=== PATIENT | female | born 1975 | race Caucasian/White ===

== ENCOUNTER 2020-05-14 15:06 | Emergency (ER) | payer BC, SELFPAY ==
[2020-05-14 15:06] VITALS: BP 148/93; PULSE 84; RESP 18; TEMP 36.2; O2SAT 98; BMI 34.7
[2020-05-14 16:57] LABS: Absolute Lymphocyte Count 2.46 X10^3/uL (0.83-4.51); Absolute Neutrophil Count 3.1 X10^3/uL (2.0-7.7); Basophil# 0.02 X10^3/uL; Basophil% 0.3 % (0-1); Eosinophil# 0.04 X10^3/uL; Eosinophils% 0.7 % (0-5); Hematocrit 47.3 % (37-47); Hemoglobin 15.9 g/dL (12.0-15.0); Lymphocyte # 2.46 X10^3/ul (4.0); Lymphocyte % 40.2 % (19-41); Mean Corp Hgb Conc 33.6 g/dL (32-36); Mean Corpuscular Hgb 30.2 pg (27.0-32.0); Mean Corpuscular Volume 89.8 fL (81-99); Monocyte# 0.45 X10^3/uL; Monocyte% 7.4 % (0-10); NRBC Flagged by Analyzer 0 % (0-5); Neutrophil # 3.14 X10^3/uL (2.7-7.7); Neutrophil % 51.2 % (47-70); Platelet Count 322 K/mm3 (150-450); RBC Distribution Width CV 12.4 % (11.6-14.6); RBC Distribution Width SD 40.5 fl (35.1-43.9); Red Blood Count 5.27 M/mm3 (4.2-5.4); White Blood Count 6.1 K/mm3 (4.4-11.0)
--- NOTE | 2020-05-14 17:04 | EKG12_ITS ---
Test Reason : CP Blood Pressure : / mmHG Vent. Rate : 077 BPM Atrial Rate : 077 BPM P-R Int : 156 ms QRS Dur : 076 ms QT Int : 390 ms P-R-T Axes : 033 -21 014 degrees QTc Int : 441 ms Normal sinus rhythm Normal ECG Confirmed by KAVITA GEE, NATI ([id number]), news videotape editor ROCHELLE ABDALLA ([id number]) on 05/16/2020 9:32:28 AM Referred By: Confirmed By:NATI WALLS MD
--- NOTE | 2020-05-14 17:05 | CT_ITS ---
STUDY: CT BRAIN WITHOUT CONTRAST REASON FOR EXAM: Female, 44 years old. MIGRAINES RADIATION DOSAGE (If Supplied By Facility): CTDIvol = ( 44.99 ) mGy, DLP = ( 745.49 ) mGycm TECHNIQUE: Transaxial CT imaging of the brain was performed without administration of intravenous contrast material. Individualized dose optimization techniques were used for this CT. COMPARISON: MRI 04/27/2014. FINDINGS: Normal soft tissue structures. Normal calvarium. Normal size ventricles and extra-axial spaces for the patient''s age. Normal white matter tracts of the cerebral hemispheres. Normal basal ganglia and thalami. Normal brainstem. Normal cerebellum. There is no intracranial hemorrhage. There are no findings of an acute ischemic infarction. Normal visualized paranasal sinuses. CT/Brain/Head without Contrast IMPRESSION: Normal unenhanced CT scan of the brain. Electronically Signed: Bhakti Valenzuela MD at 19:08 EDT Tel , Service support ,
--- NOTE | 2020-05-14 17:05 | ED.DCSUM_ITS ---
History of Present Illness Chief Complaint: Abn Labs Informant: Patient, PCP Narrative: Patient was sent to the emergency department for the evaluation of an elevated d-dimer. Patient states that she has a discomfort in the proximal left anterior thigh near the inguinal ligament. She states she occasionally feels a bubbly gurgling sensation in the leg. She denies any leg swelling or calf discomfort. No changes in skin color. She states that she is also had 4 weeks of left upper chest discomfort radiating to the back. She also states that she has a history of ocular migraines and lately has had an increase in the amount up to 2 times per week. Her symptoms are a kaleidoscope vision in which she has to rest and symptoms kimberly after 40 minutes. She denies any pain. She has a history of factor V and is not currently being treated for it. She went to her primary care physician as part of a work-up she had a d-dimer that returned elevated at 840. She does not believe she is ever had a d-dimer before. Past Medical History - Allergies and Home Meds Allergies/Adverse Reactions: Allergies No Known Allergies Allergy (Verified 05/14/20 15:09) Primary Care Physician: Care Physician,No Primary [NON-STAFF] - Past Medical History: - - Factor V Leiden, ocular migraines Surgical History: noncontributory Smoking Status: Never smoker Drugs: None Review of Systems General: Denies: Chills, Fever, Sweats Eyes: Reports: Visual changes - bilaterally. Denies: Diplopia ENT: Denies: Rhinorrhea, Sore throat Cardiovascular: Reports: Chest pain. Denies: Palpitations Respiratory: Denies: Dyspnea, Cough, Dyspnea on exertion Gastrointestinal: Denies: Abdominal pain, Nausea, Vomiting, Diarrhea, Melena, Hematochezia Genitourinary: Denies: Dysuria, Hematuria, Frequency Musculoskeletal: Reports: Extremity Pain - See history of present illness. Denies: Back pain Skin: Denies: Rash, Wounds Neurological: Reports: Headache - Ocular migraines. Denies: Weakness, Parasthesia, Numbness Physical Exam Vital Signs/Narrative: Vital Signs Temp Pulse Resp BP Pulse Ox 05/14/20 15:06 97.1 F L 84 18 148/93 H 98 Inital Vital Signs reviewed: Yes General: Well nourished, Well developed, No Acute Distress Head: Normocephalic, Atraumatic Eyes: Perrl, EOMI ENT: Moist mucous membranes, No rhinorrhea Neck: Supple, Nontender Cardiovascular: Regular rate, Regular rhythm, No murmurs Respiratory: No distress, CTA bilaterally, Chest nontender Abdomen: Soft, Nontender, Nondistended, Normal bowel sounds Back: Nontender, Normal Inspection Extremities: Nontender, No edema Skin: Normal color, No rash Neurological: Alert, Oriented x3, Cranial nerves II-XII grossly intact, Normal Strength, Normal Sensation Psychological: Normal affect, Normal Mood Diagnostic/Tx/Re-eval Laboratory Last Values WBC 6.1 K/mm3 (4.4-11.0) 05/14/20 16:30 RBC 5.27 M/mm3 (4.2-5.4) 05/14/20 16:30 Hgb 15.9 g/dL (12.0-15.0) H 05/14/20 16:30 Hct 47.3 % (37-47) H 05/14/20 16:30 MCV 89.8 fL (81-99) 05/14/20 16:30 MCH 30.2 pg (27.0-32.0) 05/14/20 16:30 MCHC 33.6 g/dL (32-36) 05/14/20 16:30 RDW Std Deviation 40.5 fl (35.1-43.9) 05/14/20 16:30 RDW Coeff of Marie 12.4 % (11.6-14.6) 05/14/20 16:30 Plt Count 322 K/mm3 (150-450) 05/14/20 16:30 MPV 9.0 fl (6.2-12.0) 05/14/20 16:30 Immature Gran % (Auto) 0.200 % (0.0-0.9) 05/14/20 16:30 Neut % (Auto) 51.2 % (47-70) 05/14/20 16:30 Lymph % (Auto) 40.2 % (19-41) 05/14/20 16:30 Twiggs % (Auto) 7.4 % (0-10) 05/14/20 16:30 Eos % (Auto) 0.7 % (0-5) 05/14/20 16:30 Baso % (Auto) 0.3 % (0-1) 05/14/20 16:30 Absolute Neuts (auto) 3.1 X10^3/uL (2.0-7.7) 05/14/20 16:30 Absolute Lymphs (auto) 2.46 X10^3/uL (0.83-4.51) 05/14/20 16:30 Nucleated RBC % 0 % (0-5) 05/14/20 16:30 D-Dimer Quant (PE/DVT) 0.36 FEU/ug/m (0.27-0.49) 05/14/20 16:30 Sodium 138 mmol/L (136-145) 05/14/20 16:30 Potassium 4.0 mmol/L (3.5-5.1) 05/14/20 16:30 Chloride 106 mmol/L (98-107) 05/14/20 16:30 Carbon Dioxide 26.0 mmol/L (21.0-32.0) 05/14/20 16:30 Anion Gap 6 (5-15) 05/14/20 16:30 BUN 9 mg/dL (7-18) 05/14/20 16:30 Creatinine 0.73 mg/dL (0.55-1.02) 05/14/20 16:30 Estim Creat Clear Calc 87.57 ml/min 05/14/20 16:30 Est GFR (MDRD) Af Amer 111 mL/min (>60) 05/14/20 16:30 Est GFR (MDRD) Non-Af 92 mL/min (>60) 05/14/20 16:30 BUN/Creatinine Ratio 12.4 RATIO (-) 05/14/20 16:30 Glucose 94 mg/dL (74-106) 05/14/20 16:30 Calcium 9.7 mg/dL (8.5-10.1) 05/14/20 16:30 Troponin I < 0.015 ng/mL (<0.045) 05/14/20 16:30 - EKG Initial EKG Interpretation: Sinus Rhythm - EKG demonstrates a normal sinus rhythm at a rate of 77. There are no concerning features of ACS - Medical Decision Making Today's d-dimer is normal. I do not believe she has a DVT in the leg. There is no swelling or tenderness in the calf. Her symptoms would be very atypical for lower extremity DVT. As her d-dimer is normal today and she has a normal chest x-ray EKG and troponin and it has been going on for 4 weeks I do not believe it represents an acute medical emergency. I think is most likely to be musculoskeletal probably muscular imbalance. As far as her ocular migraines we did CT the brain which did not show anything obvious. Recommend that she visit with neurology. Patient is comfortable with this plan. ED Disposition - Plan for ED Patient: Disposition: Home or Assisted Living Diagnosis: Chest pain, Ocular migraine Instructions: ED Chest Pain Atypical Unkn Cause, D-Dimer Referrals: Patricia Ibrahim NP, [facility]W PERSON-[facility] [Primary Care Provider] - Keep Miroslava appointment
[2020-05-14 17:19] LABS: Anion Gap 6 (5-15); BUN 9 mg/dL (7-18); BUN/Creat Ratio 12.4 RATIO (10-20); Calcium,Total 9.7 mg/dL (8.5-10.1); Chloride 106 mmol/L (98-107); Creatinine, Serum 0.73 mg/dL (0.55-1.02); EST Glomerular Filtration Rate 92 mL/min (>60); Est Glom Filt Rate - Afr Amer 111 mL/min (>60); Estimated Creatinine Clearance 87.57 ml/min; Glucose 94 mg/dL (74-106); Sodium Level 138 mmol/L (136-145)
[2020-05-14 17:27] LABS: D-Dimer Quantitative (DVT/PE) 0.36 FEU/ug/m (0.27-0.49)
--- NOTE | 2020-05-14 18:25 | RAD_ITS ---
STUDY: X-RAY CHEST REASON FOR EXAM: Female, 44 years old. chest pain, elevated d-dimer, headaches TECHNIQUE: Single AP portable view of the chest. COMPARISON: None. FINDINGS: The lungs are clear and expanded. There is no demonstrated pleural abnormality. Normal size heart. Normal mediastinum and roxanna. Normal visualized pulmonary arteries. Normal visualized aortic arch and descending thoracic aorta. Normal visualized thoracic spine. Normal visualized ribs, clavicles, and shoulders. There is no demonstrated abnormality of the visualized soft tissue structures of the upper abdomen. RAD/Chest 1 View (Portable) IMPRESSION: Normal x-ray examination of the chest. Electronically Signed: Ron Lozano MD at 19:48 EDT , Service support ,
[2020-05-14 18:55] VITALS: RESP 16
[2020-05-14 19:41] VITALS: BP 121/77; PULSE 76; RESP 16; O2SAT 98
[2020-05-14 22:24] LABS: Internal QC Validated? YES +Cl - CLEAR BKGD; Pregnancy, Serum, hCG Quali. NEGATIVE Negative
== END 2020-05-14 19:42 | disposition home or self-care (01) ==
PROVIDERS: Emergency Medicine; Emergency Provider Emergency Medicine; PCP Nurse Practitioner Family
DX: R07.89 Other chest pain (principal); G43.909 Migraine, unspecified, not intractable, without status migrainosus; M79.652 Pain in left thigh; D68.51 Activated protein C resistance
CPT/HCPCS: 70450; 71045; 80048; 84484; 84703; 85025; 85379; 93005; 99282; A4216

== ENCOUNTER → 2022-02-28 | Outpatient (CLI) | payer BC, SELFPAY ==
--- NOTE | 2022-02-28 07:00 | MRI_ITS ---
EXAM: MR HEAD WITHOUT AND WITH INTRAVENOUS CONTRAST CLINICAL INDICATION: Ataxia. TECHNIQUE: Multiplanar and multisequence MR images of the brain were obtained without and with intravenous contrast. Magnetic field strength 1.5 T. This report was created using [facility] report [employer] technology. CONTRAST: 18 cc of Dotarem IV. COMPARISON: 04/27/2014. FINDINGS: BRAIN AND EXTRA-AXIAL SPACES: Unremarkable. No intra- or extra-axial hemorrhage. No evidence of acute infarct. No intracranial mass or mass effect. There is preservation of the reich/white matter interface. Posterior fossa structures are unremarkable. Ventricles are appropriate for age. No hydrocephalus. Basal cisterns are patent. SELLA: Incidental partially empty sella unchanged since previous exam. AUDITORY SYSTEM: Unremarkable. The internal auditory canals are patent. BONES/JOINTS: Unremarkable. No discrete lytic or blastic abnormalities. SINUSES: Unremarkable as visualized. Clear. MASTOID AIR CELLS: Unremarkable as visualized. Clear. ORBITS: Unremarkable as visualized. Both globes, extraocular muscles, optic nerves and retrobulbar fat appear unremarkable. VASCULATURE: Unremarkable as visualized. Normal flow voids in the major intracranial circulation. MRI/Brain W/WO Contrast IMPRESSION: No acute findings in the head/brain. No change since previous exam. Electronically Signed: Gregory Mcnair MD at 23:36 EDT ,
== END | disposition home or self-care (01) ==
PROVIDERS: PCP Nurse Practitioner Family; Referring Provider Otolaryngology Otolaryngology/Facial Plastic Surgery; Visit Provider Otolaryngology Otolaryngology/Facial Plastic Surgery
DX: R27.0 Ataxia, unspecified (principal)
CPT/HCPCS: 70553; A9575

== ENCOUNTER 2022-03-06 10:55 | Outpatient (CLI) | payer BC, SELFPAY ==
--- NOTE | 2022-03-09 15:31 | STRESSREP_ITS ---
Stress Test Report Date: 03/06/2022 Procedure: Exercise tolerance test Indications: Dizziness, chest pain Consent: Per the patient Procedure: The patient exercised on a Chun protocol for 7 minutes and 30 seconds achieving a peak heart rate of 162 bpm (93% predicted maximal heart rate) with a peak blood pressure 138/74 mmHg and a peak MET capacity of approximately 10.1 MET's. The baseline ECG demonstrated normal sinus rhythm. The peak exercise ECG demonstrated no significant ischemic changes. [There were no cardiac dysrhythmias pretest, during exercise, or recovery]. The functional capacity was considered normal for age. Patient had chest discomfort on exertion The examination was discontinued secondary to chest discomfort, dyspnea. Impression: 1. Technically adequate (percent predicted maximal heart rate greater than 85%) exercise tolerance test 2. Stress test is positive for exercise-induced chest pain. 3. Stress test test is negative for exercise-induced EKG changes of ischemia. 4. Functional capacity is normal for age This note was generated with [employer] software. It may contain incorrect words, spelling, and punctuation that were not noted in checking the note before signing.
== END 2022-03-06 23:59 | disposition home or self-care (01) ==
LOC: CVS 10:56
PROVIDERS: PCP Nurse Practitioner Family; Referring Provider Nurse Practitioner Family; Visit Provider Nurse Practitioner Family
DX: D68.9 Coagulation defect, unspecified (principal); R42 Dizziness and giddiness; R51.9 Headache, unspecified; R07.9 Chest pain, unspecified
CPT/HCPCS: 93017

== ENCOUNTER 2022-09-10 08:58 | Emergency (ER) | payer BC, SELFPAY ==
[2022-09-10 08:59] VITALS: BP 149/90; PULSE 99; RESP 18; TEMP 36.8; O2SAT 98; BMI 35.1
--- NOTE | 2022-09-10 09:11 | RAD_ITS ---
STUDY: X-RAY CHEST REASON FOR EXAM: Female, 46 years old. Chest pain TECHNIQUE: Single AP portable view of the chest. COMPARISON: Comparison is made with prior study dated 05/14/2020. FINDINGS: EKG electrodes are seen. The lungs are clear and expanded. There is no demonstrated pleural abnormality. Normal size heart. Normal mediastinum and roxanna. Normal visualized pulmonary arteries. Normal visualized aortic arch and descending thoracic aorta. Normal visualized thoracic spine. Normal visualized ribs, clavicles, and shoulders. There is no demonstrated abnormality of the visualized soft tissue structures of the upper abdomen. RAD/Chest 1 View (Portable) IMPRESSION: Normal x-ray examination of the chest. Electronically Signed: Washington Guevara MD at 9:56 EST ,
--- NOTE | 2022-09-10 09:14 | EDS_ITS ---
HPI History of Present Illness Chief Complaint: Chest Pain Informant: patient Narrative Narrative: Patient complaints of pain in the left anterior chest and in a band under her left breast. This started this morning. She states she just does not feel right. She got lightheaded with this. She got short of breath. She got tingling in fingers of both hands. She has not had this before. She has had prior episodes of pain and has had a stress test as well as echocardiogram. I do not have access to results of her echocardiogram. She does states that it was normal other than her left ventricle being slightly smaller than the average. I did review her outpatient stress test done in February 2022 that was negative for any EKG changes at an adequate workload. Patient also has a family history of DVT and PEs in both mother and sister. This patient is known to have factor V Leiden positive but has no recent travel surgery immobilization or personal history of DVT or PE in the past. She has no leg pains or swelling. [facility] Medical History Factor V deficiency Home Medications naproxen 500 mg tablet 500 mg PO BID #14 tabs 09/10/22 [Rx Last Taken Unknown] Allergy/AdvReac Type Severity Reaction Status Date / Time No Known Allergies Allergy Verified 09/10/22 09:05 Surgical History History of cholecystectomy Social History Smoking Status: Former smoker ROS ROS ED Constitutional Constitutional ED: Denies chills or fever(s) Eyes Eyes: Denies change in vision ENT ENT ED: Denies rhinorrhea or sore throat Cardiovascular Cardiovascular: Reports as per HPI Respiratory/Chest Respiratory/Chest: Reports dyspnea; Denies cough Gastrointestinal Gastrointestinal: Denies nausea or vomiting Musculoskeletal Musculoskeletal: Denies back pain, myalgias or neck pain Integumentary Denies rash Neurologic Neurologic: Reports paresthesias; Denies headache(s) or weakness Psychiatric Psychiatric: Denies anxiety Endocrine Endocrinology: Denies polydipsia or polyuria Hematologic/Lymphatic Hematologic/Lymphatic: Denies easy bleeding or easy bruising Allergic/Immunologic Allergic/Immunologic ED: Denies urticaria EXAM Physical Exam Narrative Exam Narrative: Patient awake alert sitting comfortably in bed. No acute distress. Heart rate is about 90. Saturations are 98% on room air showing no hypoxia. HEENT: No pallor. Mucous membranes are moist Neck shows no JVD or pain with motion Lungs are completely clear bilaterally. There is no notable discomfort with a deep breath. However, when I touch the areas that are sore completely and fully reproduces the pain. She actually pulls my hand away because it hurts so much to touch. But there is no rash or vesicles or redness or mass seen. No subcu air noted. Heart is regular without murmur gallop or rub. Pulses are equal x4. Abdomen is soft nontender. No epigastric or right upper quadrant tenderness. She has already had cholecystectomy. no CVA or suprapubic tenderness Extremities show no edema cords asymmetry tenderness along the deep venous system or distended veins. Neuro: Patient is alert appropriate with no numbness or weakness. Const Vital Signs: 09/10/22 08:59 09/10/22 09:05 09/10/22 09:34 Temperature 98.2 F Temperature Source Oral Pulse Rate 99 Respiratory Rate 18 Respiratory Effort Normal Respiratory Pattern Normal Blood Pressure 149/90 H Blood Pressure Mean 109 Pulse Ox 98 98 Oxygen Delivery Method Room Air Room Air 09/10/22 10:43 09/10/22 11:23 09/10/22 12:09 Temperature Temperature Source Pulse Rate 78 79 79 Respiratory Rate 16 12 14 Respiratory Effort Respiratory Pattern Blood Pressure 142/84 H 123/73 H 113/70 Blood Pressure Mean 103 89 84 Pulse Ox 98 97 97 Oxygen Delivery Method Room Air Room Air Room Air MDM MDM MDM Narrative Medical decision making narrative: My independent interpretation the patient's single view AP chest shows no acute process. No pneumonia. No pneumothorax. Final reading by radiology is similar. CTA of the chest shows no acute process including no PE or dissection. Her CBC is normal. D-dimer was negative. Even though this was negative, she had another episode where she had worsening chest pain lightheadedness and felt that her heart race. With her family history and known factor V Leiden we did do a CT at this point. However, her exam is more consistent with musculoskeletal as it is so tender to press. Her electrolytes show no acute process. Troponin and repeat troponin are both negative and less than 7. I think with her work-up being negative, repeat troponin is negative she is safe for discharge. This may be a muscle strain or pinched nerve causing symptoms as they do wrap around under her breast and come to the front. We discussed reasons to return. I will give her medications here and to go for pain. Lab Data Attestation: I reviewed the patient's lab results. Labs: Laboratory Results - last 24 hr 09/10/22 09/10/22 09/10/22 09:40 09:40 09:40 WBC 6.9 RBC 5.07 Hgb 15.3 H Hct 45.6 MCV 89.9 MCH 30.2 MCHC 33.6 RDW Std Deviation 41.6 RDW Coeff of Marie 12.8 Plt Count 252 MPV 8.8 Immature Gran % (Auto) 0.100 Neut % (Auto) 69.0 Lymph % (Auto) 24.3 Mchenry % (Auto) 5.7 Eos % (Auto) 0.6 Baso % (Auto) 0.3 Absolute Neuts (auto) 4.8 Absolute Lymphs (auto) 1.68 Nucleated RBC % 0 D-Dimer Quant (PE/DVT) 0.36 Sodium 139 Potassium 3.9 Chloride 104 Carbon Dioxide 25.0 Anion Gap 10 BUN 10 Creatinine 0.71 Estim Creat Clear Calc 88.14 Est GFR (MDRD) Af Amer 113 Est GFR (MDRD) Non-Af 93 BUN/Creatinine Ratio 14.0 Glucose 118 H Calcium 9.3 Troponin I High Sens 4 09/10/22 11:54 WBC RBC Hgb Hct MCV MCH MCHC RDW Std Deviation RDW Coeff of Marie Plt Count MPV Immature Gran % (Auto) Neut % (Auto) Lymph % (Auto) Mchenry % (Auto) Eos % (Auto) Baso % (Auto) Absolute Neuts (auto) Absolute Lymphs (auto) Nucleated RBC % D-Dimer Quant (PE/DVT) Sodium Potassium Chloride Carbon Dioxide Anion Gap BUN Creatinine Estim Creat Clear Calc Est GFR (MDRD) Af Amer Est GFR (MDRD) Non-Af BUN/Creatinine Ratio Glucose Calcium Troponin I High Sens 6 Radiography Diagnostic Testing: Clinical Impression(s) from Imaging Studies Chest X-Ray 09/10/22 09:11 IMPRESSION: Normal x-ray examination of the chest. Electronically Signed: Washington Guevara MD at 9:56 EST , Chest CTA 09/10/22 10:44 IMPRESSION: Normal CTA chest examination, without a demonstrated pulmonary embolism or arterial dissection. Electronically Signed: Washington Guevara MD at 12:03 EST , EKG Initial EKG: Comments: My independent interpretation of the EKG done for chest pain shows a normal sinus rhythm with overall rate of 99. No ventricular ectopy. No ST elevation or depression. AK interval, QRS duration and QTc are normal. Other than a slight prior EKG of 14 May 2020. This EKG was done while she had symptoms. Discharge Plan Triage Chief Complaint: Chest Pain ED Provider: Catarino Juares Dx/Rx/DC Orders Clinical Impression: Left-sided chest pain Instructions: ED Chest Pain, Uncertain Cause Prescriptions: New naproxen 500 mg tablet 500 mg PO BID Qty: 14 0RF Primary Care Provider: Patricia Ibrahim NP Referrals: Patricia Ibrahim NP, PATIENT REGISTRATION REPRESENTATIVE-C [Primary Care Provider] - 3-5 Days Disposition Disposition: Home, Self Care
--- NOTE | 2022-09-10 09:15 | EKG12_ITS ---
Test Reason : CP Blood Pressure : / mmHG Vent. Rate : 099 BPM Atrial Rate : 099 BPM P-R Int : 162 ms QRS Dur : 078 ms QT Int : 350 ms P-R-T Axes : 040 -20 030 degrees QTc Int : 449 ms Normal sinus rhythm Low voltage QRS Borderline ECG Confirmed by KAVITA GEE, NATI ([id number]), offline editor ROCHELLE ABDALLA ([id number]) on 09/11/2022 10:04:53 AM Referred By: PL Confirmed By:NATI WALLS MD
[2022-09-10 09:34] VITALS: O2SAT 98
[2022-09-10 09:49] LABS: Absolute Lymphocyte Count 1.68 X10^3/uL (0.83-4.51); Absolute Neutrophil Count 4.8 X10^3/uL (2.0-7.7); Basophil# 0.02 X10^3/uL; Basophil% 0.3 % (0-1); Eosinophil# 0.04 X10^3/uL; Eosinophils% 0.6 % (0-5); Hematocrit 45.6 % (37-47); Hemoglobin 15.3 g/dL (12.0-15.0); Lymphocyte # 1.68 X10^3/ul (0.83-4.51); Lymphocyte % 24.3 % (19-41); Mean Corp Hgb Conc 33.6 g/dL (32-36); Mean Corpuscular Hgb 30.2 pg (27.0-32.0); Mean Corpuscular Volume 89.9 fL (81-99); Mean Platelet Vol. 8.8 fl (6.2-12.0); Monocyte# 0.39 X10^3/uL; Monocyte% 5.7 % (0-10); NRBC Flagged by Analyzer 0 % (0-5); Neutrophil # 4.76 X10^3/uL (2.7-7.7); Platelet Count 252 K/mm3 (150-450); RBC Distribution Width CV 12.8 % (11.6-14.6); RBC Distribution Width SD 41.6 fl (35.1-43.9); Red Blood Count 5.07 M/mm3 (4.2-5.4); White Blood Count 6.9 K/mm3 (4.4-11.0)
[2022-09-10 10:01] LABS: D-Dimer Quantitative (DVT/PE) 0.36 FEU/ug/m (0.27-0.49)
[2022-09-10 10:09] LABS: Anion Gap 10 (5-15); BUN 10 mg/dL (7-18); Calcium,Total 9.3 mg/dL (8.5-10.1); Chloride 104 mmol/L (98-107); Creatinine, Serum 0.71 mg/dL (0.55-1.02); EST Glomerular Filtration Rate 93 mL/min (>60); Est Glom Filt Rate - Afr Amer 113 mL/min (>60); Estimated Creatinine Clearance 88.14 ml/min; Glucose 118 mg/dL (74-106); Potassium 3.9 mmol/L (3.5-5.1); Sodium Level 139 mmol/L (136-145); Troponin-I HS (w/2H Reflex) 4 pg/mL (3.0-54.0)
[2022-09-10 10:43] VITALS: BP 142/84; PULSE 78; RESP 16; O2SAT 98
--- NOTE | 2022-09-10 10:44 | CT_ITS ---
STUDY: CTA CHEST REASON FOR EXAM: Female, 46 years old. Left anterior chest pain. Shortness of breath. RADIATION DOSAGE (If Supplied By Facility): CTDIvol = ( 12.33 ) mGy, DLP = ( 543.54 ) mGycm TECHNIQUE: The examination was performed with the intravenous administration of IV 100mL Isovue-370. Post-processing of the angiographic images was performed, with multiplanar reformation and 3D reconstruction. Individualized dose optimization techniques were used for this CT. COMPARISON: None. FINDINGS: Normal enhancement of the main pulmonary artery and right and left pulmonary arteries. Normal enhancement of the bilateral peripheral pulmonary arteries. There is no demonstrated pulmonary embolism. Normal thoracic aorta and visualized great vessels. There is no demonstrated aortic dissection. Normal heart and pericardium. Normal mediastinum. Normal hilar regions. Normal visualized trachea and bronchi. The lungs are well expanded. Normal pulmonary parenchyma. Normal pleura. Normal chest wall structures. Normal osseous structures. The patient is status post cholecystectomy. Diffuse fatty infiltration of the liver. CT/CTA Chest W/WO Contrast IMPRESSION: Normal CTA chest examination, without a demonstrated pulmonary embolism or arterial dissection. Electronically Signed: Washington Guevara MD at 12:03 EST ,
[2022-09-10 11:23] VITALS: BP 123/73; PULSE 79; RESP 12; O2SAT 97
[2022-09-10 11:46] LABS: Reflex Troponin-HS? (from REC) Y
[2022-09-10 12:09] VITALS: BP 113/70; PULSE 79; RESP 14; O2SAT 97
[2022-09-10 12:16] LABS: Troponin-I HS 6 pg/mL (3.0-54.0)
[2022-09-10] MEDS: Ketorolac 15 MG/ML Vial IV (12:59)
[2022-09-10 13:03] VITALS: BP 114/67; PULSE 79; RESP 15; O2SAT 98
== END 2022-09-10 13:04 | disposition home or self-care (01) ==
PROVIDERS: Emergency Provider Emergency Medicine; PCP Nurse Practitioner Family; Visit Provider Emergency Medicine
DX: R07.9 Chest pain, unspecified (principal); D68.2 Hereditary deficiency of other clotting factors; R06.02 Shortness of breath; Z87.891 Personal history of nicotine dependence; R06.00 Dyspnea, unspecified
CPT/HCPCS: 71045; 71275; 80048; 84484; 85025; 85379; 93005; 96374; 99285; Q9967; A4216

== ENCOUNTER 2023-07-29 07:31 | Emergency (ER) | payer BC, SELFPAY ==
[2023-07-29 07:32] VITALS: BP 111/79; PULSE 80; RESP 14; TEMP 36.8; O2SAT 100; BMI 33.4
--- NOTE | 2023-07-29 07:35 | ED.RN ---
PT'S DAUGHTER WAS INTERRUPTING THIS TRIAGE NURSE WHILE I WAS TRIAGING AN ELDERLY PT DEMANDING THAT HER MOTHER BE SEEN IMMEDIATELY D/T HER INCISION BLEEDING. DAUGHTER REFUSED TO SIT DOWN, STOOD AT THE TRIAGE DESK AND LISTENED TO THE CURRENT ELDERLY PT THAT WAS BEING TRIAGED INFORMATION AND MEDICAL COMPLAINTS. ONCE I ASSESSED THIS PT'S WOUND, THERE WAS NO DRAINAGE NOTED AT THAT TIME.
--- NOTE | 2023-07-29 08:17 | EX.ED.DYSGE1 ---
HPI History of Present Illness Chief Complaint: Wound Informant: patient Narrative Narrative: 47-year-old female presenting to the emergency room with drainage from right breast. Patient states she underwent bilateral breast reduction surgery by Dr. Whitehead at [facility]. She states she had a follow-up appointment yesterday and stated that things appeared well. This morning she noted a bloody drainage from the right breast. She feels the incision has opened up. She has not been able to get in contact with her surgeon yet. No reported fevers. No change in pain. PFSH PFS Medical History Anxiety and depression Back pain Factor V deficiency Gallstones Headache, migraine Kidney stones Home Medications naproxen 500 mg tablet 500 mg PO BID #14 tabs 09/10/22 [Rx Last Taken Unknown] acetaminophen 500 mg tablet (Tylenol Extra Strength) 1,000 mg PO Q6H PRN 02/24/23 [History Last Taken Unknown] aspirin 325 mg tablet 650 mg PO DAILY PRN 02/24/23 [History Last Taken Unknown] citalopram 20 mg tablet 20 mg PO DAILY 02/24/23 [History Last Taken Unknown] Allergy/AdvReac Type Severity Reaction Status Date / Time No Known Allergies Allergy Verified 07/29/23 07:31 Family History Other Diabetes Liver disease Surgical History History of cholecystectomy Social History Smoking Status: Former smoker alcohol intake: never substance use type: does not use additional social history: Uses aspirin. Uses ibuprofen. ROS ROS ED Constitutional Constitutional ED: Denies chills, fever(s) or weight loss Eyes Eyes: Denies change in vision or diplopia ENT ENT ED: Denies ear pain, rhinorrhea or sore throat Cardiovascular Cardiovascular: Denies chest pain, orthopnea, palpitations or racing heartbeat Respiratory/Chest Respiratory/Chest: Denies cough, dyspnea or orthopnea Gastrointestinal Gastrointestinal: Denies abdominal pain, diarrhea, nausea or vomiting Genitourinary Genitourinary ED: Denies dysuria, hematuria or urinary frequency Musculoskeletal Musculoskeletal: Denies arthralgias or myalgias Integumentary Reports other Details: Right breast drainage ; Denies abscess or rash Neurologic Neurologic: Denies headache(s) or weakness Psychiatric Psychiatric: Denies anxiety, depression, suicidal ideation or suicidal thoughts Endocrine Endocrinology: Denies polydipsia, polyphagia or polyuria Allergic/Immunologic Allergic/Immunologic ED: Denies mouth swelling, tongue swelling or urticaria EXAM Physical Exam Const Vital Signs: 07/29/23 07:32 Temperature 98.2 F Temperature Source Temporal Pulse Rate 80 Respiratory Rate 14 Blood Pressure 111/79 Blood Pressure Mean 89 Pulse Ox 100 Oxygen Delivery Method Room Air Positive well nourished and well developed General Appearance ED: well developed HEENT Reports normocephalic, head/scalp atraumatic and moist mucous membranes Eyes PERRL and EOMs intact bilaterally Neck no lymphadenopathy, supple and no JVD Chest Wall Chest Narrative: There are healing T-shaped lacerations involving the Bilateral breast. The right breast where the vertical and horizontal incision meet show a very small area of possible dehiscence. However am not really able to get the wound to open up. Comparing [id number] I do not see any significant difference in skin coloring (such as erythema). I am not able to express any further drainage. Significant difference in pain from side to side Resp normal respiratory effort and clear to auscultation bilaterally Cardio regular rate, regular rhythm and no murmurs GI normal to inspection, nondistended, normoactive bowel sounds and non-tender Palpation: soft Back/Spine no CVA tenderness and normal ROM Extremity normal to inspection General Extremety ED: Negative for edema General Extremity: Negative for edema Neuro oriented x3 and CN's II-XII intact bilaterally Sensorium / Orientation: alert Motor Exam: strength 5/5 throughout Psych mental status grossly normal Mood & Affect: Negative for depressed or tearful Skin no rashes or lesions noted and no wounds MDM MDM MDM Narrative Medical decision making narrative: I did call to speak with her surgeon as she is postop day 9. At this point continued supportive care and postoperative instructions. Return if worsening or concerns. At this point I am not seeing obvious signs of infection or need for hospitalization. Discharge Plan Triage Chief Complaint: Wound ED Provider: Armani Martinez Dx/Rx/DC Orders Clinical Impression: Encounter for postoperative wound check, Seroma of breast Instructions: ED Seroma, Postsurgical Prescriptions: No Action citalopram 20 mg tablet 20 mg PO DAILY Patient Comments: TAKE 1 TABLET BY MOUTH EVERY DAY acetaminophen [Tylenol Extra Strength] 500 mg tablet 1,000 mg PO Q6H PRN aspirin 325 mg tablet 650 mg PO DAILY PRN naproxen 500 mg tablet 500 mg PO BID Qty: 14 0RF Primary Care Provider: Patricia Ibrahim NP Referrals: Patricia Ibrahim NP, [employer] [Primary Care Provider] - Activity Restrictions/Additional Instructions: As discussed he may continue to have drainage. If there are any concerns for infection or the amount of drainage please discuss with your surgeon or return for repeat examination Disposition Disposition: Home, Self Care
--- NOTE | 2023-07-29 08:18 | NURSING ---
LEFT MESSAGE ON [facility] PHONE. DR SARAH PENNY [phone]
--- NOTE | 2023-07-29 09:08 | NURSING ---
CALLED 'S OFFICE, LEFT ANOTHER MESSAGE
[2023-07-29 09:52] VITALS: TEMP 36.8
== END 2023-07-29 09:53 | disposition home or self-care (01) ==
PROVIDERS: Emergency Provider Emergency Medicine; PCP Nurse Practitioner Family; Visit Provider Emergency Medicine
DX: Z51.89 Encounter for other specified aftercare (principal); S20.01XA Contusion of right breast, initial encounter; F41.8 Other specified anxiety disorders; Z79.899 Other long term (current) drug therapy; Z79.82 Long term (current) use of aspirin; Z90.49 Acquired absence of other specified parts of digestive tract; Z87.891 Personal history of nicotine dependence
CPT/HCPCS: 99282